=== PATIENT | female | born 1970 | race Caucasian/White ===

== ENCOUNTER 2019-03-01 22:35 | Observation (INO) ==
[2019-03-01] MEDS ORDERED: SUCRALFATE 1 G/10 ML UDC PO ONE (22:49)
[2019-03-01] MEDS ORDERED: LIDOCAINE HCL 20 ML UDC PO ONE (22:49)
[2019-03-01] MEDS ORDERED: MAG HYDROX/ALUMINUM HYD/SIMETH 30 ML UDC PO ONE (22:49)
[2019-03-01 22:54] LABS: Hematocrit 43.2 % (37.0-47.0); Hemoglobin 14.5 gm/dL (12.5-16.0); Mean Cell Volume 93.1 fl (78-100); Mean Corpuscular Hemoglobin 31.3 pg (27-31); Mean Corpuscular Hgb Conc 33.6 g/dl (32-36); Mean Platelet Volume 10.7 fl (8-12.5); Neutrophil # 6.7 K/mm3 (1.3-6.0); Neutrophil % 63.7 % (42-75.0); Platelet Count 226 K/mm3 (150-450); Red Blood Count 4.64 M/mm3 (4.2-5.4); Red Cell Distribution Width 12.8 % (11.5-14.0); White Blood Count 10.5 K/mm3 (4.0-10.5)
[2019-03-01] MEDS ORDERED: MORPHINE SULFATE 2 MG/ML DISP.SYRIN IV ONE (22:58)
[2019-03-01] MEDS ORDERED: NITROGLYCERIN 1 INCH PACKET TD ONE (22:58)
[2019-03-01 23:18] LABS: ALT 32 U/L (19-67); AST 22 U/L (0-48); Albumin * 4.1 gm/dl (3.4-5.0); Alkaline Phosphatase * 132 U/L (50-170); Anion Gap 16.7 mmol/L (6.8-13.8); BNP * 97 pg/mL (5-150); Bilirubin, Total 0.6 mg/dL (0.0-1.1); Blood Urea Nitrogen 16 mg/dL (3-23); Ca. Corrected For Albumin 8.8 mg/dL (8.4-10.2); Calcium * 9.2 mg/dL (7.9-10.9); Carbon Dioxide 24.4 mmol/L (24-32.6); Chloride 106 mmol/L (97-106); Glucose * 93 mg/dL (70-110); Potassium 4.1 mmol/L (3.4-4.6); Sodium 143 mmol/L (132-142); Total Protein 7.2 gm/dL (6.2-8.2); Troponin I Less than 0.017 ng/mL (0.00-0.10)
--- NOTE | 2019-03-01 23:38 | ERNOTE ---
Chest Pain/Cardiac HPI Date of Service: 03/01/19 Chief Complaint: Chest Pain Time Seen by Provider: 03/01/19 22:45 Source: patient Immunizations: IMMUNIZATION HX Immunizations Up to Date Yes History of Influenza Vaccine Yes Hx Pneumococcal Vaccination No Allergies/Adverse Reactions: Allergies No Known Allergies Allergy (Verified 03/01/19 22:42) Home Medications: HOME MEDICATIONS Aspirin [Aspirin EC] 325 mg PO DAILY 01/10/19 [Last Taken 03/01/19 06:30] Atorvastatin Calcium [Lipitor] 40 mg PO DAILY 01/10/19 [Last Taken Unknown] Clopidogrel Bisulfate [Plavix] 75 mg PO DAILY 01/10/19 [Last Taken Unknown] Lisinopril 5 mg PO DAILY 01/10/19 [Last Taken Unknown] Metoprolol Tartrate [Lopressor] 25 mg PO BID 01/10/19 [Last Taken Unknown] Nitroglycerin 0.4 mg SUBLINGUAL Q5M PRN 01/10/19 [Last Taken Unknown] amLODIPine BESYLATE [Norvasc] 5 mg PO DAILY 01/10/19 [Last Taken Unknown] varenicline 0.5 mg tablet 0.5 mg PO DAILY #11 tab 03/01/19 [Last Taken Unknown] varenicline 1 mg tablet 1 mg PO BID 77 Days #154 tab 03/01/19 [Last Taken Unknown] Narrative: This is a 48-year-old female who comes to the emergency department complaining of right shoulder and left-sided chest pain. The patient reports she was doing laundry when she developed a burning sensation in the right shoulder area. At the same time she developed a tightness or squeezing sensation in her left precordial area. She did not have any nausea but she did get short of breath. She also became diaphoretic. The patient says that she suffered a silent heart attack about a month and a half ago. She had basic blood work done by her doctor and she reports that the troponin was elevated. They did a heart catheterization and told her that she had nothing which required a stent, but she had a 70% blockage, a 60% blockage, and a 30% blockage. Patient does have high blood pressure and is being treated for high cholesterol. She is also a smoker. She reports she is cut down significantly. The patient took a nitroglycerin says that the chest pain eased just a tiny bit. Did not do anything for the shoulder discomfort. Again the patient had no symptoms with the previous heart problem. The patient reports that her symptoms are waxing and waning but not going away completely. She reports a 3 or 4 out of 10 pain at the moment. No nausea or vomiting. Did have a little bit of dizziness. She is short of breath but no coughing. Review of Systems - Review of Systems Constitutional: Present: no symptoms reported EYE: Present: no symptoms reported ENT: Present: no symptoms reported Respiratory: Present: See HPI, shortness of breath Cardiology: Present: See HPI, chest pain Gastrointestinal/Abdominal: Absent: nausea, vomiting, abdominal pain Genitourinary: Present: no symptoms reported Musculoskeletal: Present: joint pain, other - Right shoulder discomfort burning Skin: Present: no symptoms reported Neurological: Present: other - A little bit of dizziness Endocrine: Present: no symptoms reported Hematologic/Lymphatic: Present: no symptoms reported Psych: Present: no symptoms reported All Other Systems: All systems neg except as marked Medical History (Updated 03/02/19 @ 00:26 by Walter Yoo MD) Left shoulder strain (Acute) Onset Date: Unknown Dehydration (Acute) Onset Date: Unknown Hypokalemia (Acute) Onset Date: Unknown Lymphadenitis (Acute) Onset Date: Unknown Costochondritis (Acute) Onset Date: Unknown Pneumonia (Acute) Onset Date: Unknown Hx of myocardial infarction Back pain Onset Date: 2012 Constipation Onset Date: 2011 Hand pain, right Onset Date: Unknown Irregular menses Onset Date: 2016 Nipple lesion Onset Date: 2016 Personal history of cervical dysplasia Onset Date: 2011 Seizures Onset Date: Unknown as a child Surgical History: Surgical History (Updated 07/26/18 @ 15:08 by Cate Gregory RN) Encounter for tubal ligation Onset Date: 1998 History of colonoscopy Onset Date: 2013 [place]-normal. recheck 5-10 yrs. History of left breast biopsy Onset Date: 2011 ultrasound guided bx-fibroadenoma History of tonsillectomy Onset Date: Unknown as a child wisdom teeth Onset Date: Unknown Family History: Family History (Updated 07/26/18 @ 15:19 by Cate Gregory RN) Brother Alive and well Sister Cervix cancer Sister Alive and well Father , age 76 Myocardial infarction CHF (congestive heart failure) COPD (chronic obstructive pulmonary disease) Hypertension Mother , age 64 COPD (chronic obstructive pulmonary disease) Hypertension Brother Lung cancer bone Grandmother Myocardial infarction Grandmother Myocardial infarction Grandfather Myocardial infarction Social History: Preferred Language Lao Smoking Status Current every day smoker Abuse History No History of abuse Psych History No pertinent hx Alcohol Use none Drug Use none (Last Updated 01/26/19 @ 13:57 by Ivana Harrell MD) No Social History Section defined Physical Exam - Physical Exam General Appearance: Present: wd/wn, alert, no apparent distress Head Exam: Present: normal inspection, no evidence of injury Eye Exam: Normal inspection: bilateral, PERRL: bilateral, EOMI: bilateral Ears, Nose, Throat: Present: normal ENT inspection, normal pharynx Neck: Present: normal inspection, nontender Respiratory: Present: no respiratory distress, normal breath sounds, lungs clear Cardiovascular/Chest: Present: regular rate, rhythm, no murmur Gastrointestinal/Abdominal: Present: nontender, nondistended, soft Back Exam: Present: normal inspection Extremity Exam: Present: normal inspection, non-tender, normal range of motion, no edema Neurological Exam: Present: alert, oriented, normal mood/affect, no motor/sensory deficits Skin Exam: Present: normal color, warm/dry Lymphatic Exam: Present: no adenopathy Progress - Results and Orders Patient's Lab Results:: I have reviewed the patient's lab results. - Vital Signs Patient's Vital Signs:: I have reviewed the patient's vital signs. Vital Signs: Vital Signs 03/01/19 22:39 Temperature 36.1 C Pulse Rate 87 Respiratory Rate 19 Blood Pressure 139/86 O2 Sat by Pulse Oximetry 99 - EKG EKG #1 EKG read: Interp. by me EKG Comments: EKG demonstrates sinus rhythm with a ventricular rate of 70. Normal axis. Normal intervals. No ST elevation. T waves are inverted in 3. T waves are flattened laterally. Low voltages throughout. T wave inversion in 3 may be a normal variant. - X-Ray X-Ray #1 X-Ray: chest Interpretation: Interp. by me X-ray Comments: No acute cardiopulmonary disease - Progress/Reassessment Chief Complaint: Chest Pain Plan - Plan Plan: 48-year-old female with a history of coronary disease had a cath within the last couple of months coming in with chest pain while doing laundry. Pain started 90 minutes prior to arrival. Was associated with shortness of breath and diaphoresis. Enzymes on the first set and EKG are unremarkable. Going to admit to the hospital for rule out. Discussed with the hospital doctor who is in agreement. Departure Clinical Impression: Chest pain Qualifiers: Chest pain type: precordial pain Qualified Code(s): R07.2 - Precordial pain - Departure Disposition: Still a patient Condition: Good
[2019-03-02 00:26] LABS: Urine Bilirubin Negative (NEGATIVE); Urine Blood 25 /ul (NEGATIVE); Urine Ketone Negative (NEGATIVE); Urine Nitrite Negative (NEGATIVE); Urine Protein Negative (NEGATIVE); Urine Urobilinogen Normal (NORMAL); Urine pH 6.5 pH (5.0-7.0)
[2019-03-02 00:34] LABS: Urine Appearance Clear (CLEAR); Urine Bacteria None Seen; Urine Color Yellow; Urine RBC 0-5 /hpf (0-5); Urine WBC None Seen /hpf (0-5)
--- NOTE | 2019-03-02 10:29 | HP ---
Chief Complaint - Chief Complaint Date of Service: 03/02/19 Time of Service: 10:29 Chief Complaint: chest pain History of Present Illness: 48 yo CF presented to the ER for chest pain that began afternoon of admission. She states that she has a history of heart attack, recent catheterization showed her to have blockages in multiple vessels which is being managed conservatively. Patient states that she was doing laundry when she developed chest pain that was burning in nature. She took nitro which minimally improved the pain. She came to the ER when it did not resolve. Initial troponin was negative, repeat troponin was negative. EKG was negative for ST elevation changes. There was an inverted T wave in lead III and low voltage throughout, otherwise normal EKG. Her vital signs been stable with normal O2 sats. This morning when I saw her her pain is resolved and she is feeling great. She had no questions or concerns, she had a negative cardiac work-up overnight. Medical History (Updated 03/02/19 @ 10:29 by Sunny Bland DO) Left shoulder strain (Acute) Onset Date: Unknown Dehydration (Acute) Onset Date: Unknown Hypokalemia (Acute) Onset Date: Unknown Lymphadenitis (Acute) Onset Date: Unknown Costochondritis (Acute) Onset Date: Unknown Pneumonia (Acute) Onset Date: Unknown Hx of myocardial infarction Back pain Onset Date: 2012 Constipation Onset Date: 2011 Hand pain, right Onset Date: Unknown Irregular menses Onset Date: 2015 Nipple lesion Onset Date: 2016 Personal history of cervical dysplasia Onset Date: 2011 Seizures Onset Date: Unknown as a child Surgical History: Surgical History (Updated 03/02/19 @ 10:29 by Sunny Bland DO) Encounter for tubal ligation Onset Date: 1998 History of colonoscopy Onset Date: 2013 [place]-normal. recheck 5-10 yrs. History of left breast biopsy Onset Date: 2011 ultrasound guided bx-fibroadenoma History of tonsillectomy Onset Date: Unknown as a child wisdom teeth Onset Date: Unknown Family History: Family History (Updated 07/26/18 @ 15:19 by Cate Gregory RN) Brother Alive and well Sister Cervix cancer Sister Alive and well Father , age 76 Myocardial infarction CHF (congestive heart failure) COPD (chronic obstructive pulmonary disease) Hypertension Mother , age 64 COPD (chronic obstructive pulmonary disease) Hypertension Brother Lung cancer bone Grandmother Myocardial infarction Grandmother Myocardial infarction Grandfather Myocardial infarction Social History: Patient Lives/Resources 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 Smoking Status Current every day smoker Have you smoked in the past 12 Yes months Do you dip or chew tobacco No Abuse History No History of abuse Psych History No pertinent hx Alcohol Use none Drug Use none (Last Updated 01/26/19 @ 13:57 by Ivana Harrell MD) No Social History Section defined Review Of Systems (GEN) - Review of Systems Generalized/Overall Review: Absent: Weakness, Chills, Fever EENTM: Present: No Symptoms Reported Respiratory: Absent: Cough, Shortness of Breath, Wheezing Cardiac: Present: Chest Pain. Absent: Edema, Palpitations Abdominal: Present: No Symptoms Reported Genitourinary: Present: No Symptoms Reported Musculoskeletal: Present: Joint Pain - Right shoulder. Absent: Back Pain, Joint Swelling Neurological: Present: No Symptoms Reported Skin: Present: No Symptoms Reported Endocrine: Present: No Symptoms Reported Immunizations: IMMUNIZATION HX Immunizations Up to Date Yes History of Influenza Vaccine Yes Hx Pneumococcal Vaccination No Allergies/Adverse Reactions: Allergies Allergy/AdvReac Type Severity Reaction Status Date / Time No Known Allergies Allergy Verified 03/01/19 22:42 Home Medications: HOME MEDICATIONS Aspirin [Aspirin EC] 325 mg PO DAILY 01/10/19 [Last Taken 03/01/19 06:30] Atorvastatin Calcium [Lipitor] 40 mg PO DAILY 01/10/19 [Last Taken Unknown] Clopidogrel Bisulfate [Plavix] 75 mg PO DAILY 01/10/19 [Last Taken Unknown] Lisinopril 5 mg PO DAILY 01/10/19 [Last Taken Unknown] Metoprolol Tartrate [Lopressor] 25 mg PO BID 01/10/19 [Last Taken Unknown] Nitroglycerin 0.4 mg SUBLINGUAL Q5M PRN 01/10/19 [Last Taken Unknown] amLODIPine BESYLATE [Norvasc] 5 mg PO DAILY 01/10/19 [Last Taken Unknown] varenicline 0.5 mg tablet 0.5 mg PO DAILY #11 tab 03/01/19 [Last Taken Unknown] varenicline 1 mg tablet 1 mg PO BID 77 Days #154 tab 03/01/19 [Last Taken Unknown] Tiotropium [place] [Spiriva] 18 mcg INHALATION BID 03/02/19 [Last Taken Unknown] Exam - Exam Vital Signs: Vital Signs - Last Taken Temp 36.6 C 03/02/19 06:52 Pulse 54 L 03/02/19 06:52 Resp 16 03/02/19 06:52 BP 106/68 03/02/19 06:52 Pulse Ox 97 03/02/19 06:52 Constitutional: Present: Alert, Oriented x3 ENT Exam: Present: hearing grossly normal. Absent: nasal drainage Eye Exam: bilateral eye: normal inspection Neck: Present: non-tender, full range of motion, supple Respiratory: Present: lungs clear, normal breath sounds, no respiratory distress Cardiovascular/Chest: Present: normal peripheral pulses, regular rate, rhythm, no murmur Skin Exam: Present: normal color, warm/dry Appearance: Present: appropriate appearance, appropriate insight Eye contact: Present: cooperative, good eye contact Thoughts: Present: normal thought pattern, normal mood /affect Diagnostic Studies: Abnormal Lab Results 03/01/19 03/01/19 03/02/19 Range/Units 22:45 22:45 00:00 MCH 31.3 H (27-31) pg Neutrophils # 6.7 H (1.3-6.0) K/mm3 Sodium 143 H (132-142) mmol/L Plasma Sodium 143 H (130-142) mmol/L Anion Gap 16.7 H (6.8-13.8) mmol/L Est GFR (Non-Af Amer) 50 L (60-130) mL/min Urine Blood 25 H (NEGATIVE) /ul Laboratory Results WBC 10.5 K/mm3 (4.0-10.5) 03/01/19 22:45 RBC 4.64 M/mm3 (4.2-5.4) 03/01/19 22:45 Hgb 14.5 gm/dL (12.5-16.0) 03/01/19 22:45 Hct 43.2 % (37.0-47.0) 03/01/19 22:45 MCV 93.1 fl (78-100) 03/01/19 22:45 MCH 31.3 pg (27-31) H 03/01/19 22:45 MCHC 33.6 g/dl (32-36) 03/01/19 22:45 RDW 12.8 % (11.5-14.0) 03/01/19 22:45 Plt Count 226 K/mm3 (150-450) 03/01/19 22:45 MPV 10.7 fl (8-12.5) 03/01/19 22:45 Immature Gran % (Auto) 0.20 % (0.001-0.429) 03/01/19 22:45 Immature Gran # (Auto) 0.02 K/mm3 (0.000-0.0310) 03/01/19 22:45 63.7 % (42-75.0) 03/01/19 22:45 27.7 % (20-51) 03/01/19 22:45 5.6 % (0.0-9) 03/01/19 22:45 2.4 % (0.0-3.0) 03/01/19 22:45 0.4 % (0.0-1.0) 03/01/19 22:45 Nucleated RBC % 0.0 k/mm3 (0-1) 03/01/19 22:45 6.7 K/mm3 (1.3-6.0) H 03/01/19 22:45 2.91 k/mm3 (1.5-3.5) 03/01/19 22:45 0.6 k/mm3 (0.0-1.0) 03/01/19 22:45 0.3 k/mm3 (0.0-0.7) 03/01/19 22:45 Absolute Basophils 0.0 k/mm3 (0.0-0.1) 03/01/19 22:45 Sodium 143 mmol/L (132-142) H 03/01/19 22:45 143 mmol/L (130-142) H 03/01/19 22:45 Potassium 4.1 mmol/L (3.4-4.6) 03/01/19 22:45 Chloride 106 mmol/L (97-106) 03/01/19 22:45 Carbon Dioxide 24.4 mmol/L (24-32.6) 03/01/19 22:45 16.7 mmol/L (6.8-13.8) H 03/01/19 22:45 BUN 16 mg/dL (3-23) 03/01/19 22:45 1.23 mg/dL (0.4-1.4) 03/01/19 22:45 Est GFR (Non-Af Amer) 50 mL/min (60-130) L 03/01/19 22:45 13.0 (9.0-21.6) 03/01/19 22:45 93 mg/dL (70-110) 03/01/19 22:45 Calcium 9.2 mg/dL (7.9-10.9) 03/01/19 22:45 Calcium Adj for Albumin 8.8 mg/dL (8.4-10.2) 03/01/19 22:45 0.6 mg/dL (0.0-1.1) 03/01/19 22:45 AST 22 U/L (0-48) 03/01/19 22:45 ALT 32 U/L (19-67) 03/01/19 22:45 132 U/L (50-170) 03/01/19 22:45 Less than 0.017 ng/mL (0.00-0.10) 03/02/19 04:30 B-Natriuretic Peptide 97 pg/mL (5-150) 03/01/19 22:45 7.2 gm/dL (6.2-8.2) 03/01/19 22:45 4.1 gm/dl (3.4-5.0) 03/01/19 22:45 Yellow 03/02/19 00:00 Clear (CLEAR) 03/02/19 00:00 6.5 pH (5.0-7.0) 03/02/19 00:00 Ur Specific [place] 1.010 SP.GR. (1.005-1.010) 03/02/19 00:00 Negative mg/dL (NEGATIVE) 03/02/19 00:00 Negative mg/dL (NEGATIVE) 03/02/19 00:00 Negative mg/dL (NEGATIVE) 03/02/19 00:00 25 /ul (NEGATIVE) H 03/02/19 00:00 Negative (NEGATIVE) 03/02/19 00:00 Negative mg/dl (NEGATIVE) 03/02/19 00:00 Normal EU/dl (NORMAL) 03/02/19 00:00 Ur Leukocyte Esterase Negative /ul (NEGATIVE) 03/02/19 00:00 0-5 /hpf (0-5) 03/02/19 00:00 None seen /hpf (0-5) 03/02/19 00:00 Ur Epithelial Cells 0-5 /hpf (0-5) 03/02/19 00:00 None seen (NONE) 03/02/19 00:00 No culture indicated 03/02/19 00:00 Assessment/Plan - Narrative Narrative: 48-year-old female placed in observation for chest pain requiring cardiac rule out. Cardiac enzymes negative x2, no EKG changes. Vital signs including blood pressure, pulse, O2 sats all within normal limits. When examined this morning patient had no symptoms and stated that she was feeling well. She was ready to go home. Vital signs stable. No DVT prophylaxis as patient was only here for short stay. Heart healthy diet has been ordered. Patient working on smoking cessation, encouraged her to continue to stop. She is asking to be discharged as she feels well, likely home later today. - Assessment/Plan (1) Chest pain Problem: Acute Qualifiers: Chest pain type: precordial pain Qualified Code(s): R07.2 - Precordial pain (2) CAD (coronary artery disease) Problem: Chronic Qualifiers: Coronary Disease-Associated Artery/Lesion type: [place] artery [place] vs. transplanted heart: [place] heart Associated angina: with stable angina Qualified Code(s): I25.118 - Atherosclerotic heart disease of [place] coronary artery with other forms of angina pectoris (3) Cigarette nicotine dependence Problem: Chronic Qualifiers: Substance use status: unspecified nicotine-induced disorder Qualified Code(s): F17.219 - Nicotine dependence, cigarettes, with unspecified nicotine- induced disorders (4) Hypertension Problem: Chronic Qualifiers: Hypertension type: essential hypertension Qualified Code(s): I10 - Essential (primary) hypertension
--- NOTE | 2019-03-02 12:33 | DS ---
(1) Chest pain Problem: Acute Qualifiers: Chest pain type: precordial pain Qualified Code(s): R07.2 - Precordial pain (2) CAD (coronary artery disease) Problem: Chronic Qualifiers: Coronary Disease-Associated Artery/Lesion type: [place] artery [place] vs. transplanted heart: [place] heart Associated angina: with stable angina Qualified Code(s): I25.118 - Atherosclerotic heart disease of [place] coronary artery with other forms of angina pectoris (3) Cigarette nicotine dependence Problem: Chronic Qualifiers: Substance use status: unspecified nicotine-induced disorder Qualified Code(s): F17.219 - Nicotine dependence, cigarettes, with unspecified nicotine- induced disorders (4) Hypertension Problem: Chronic Qualifiers: Hypertension type: essential hypertension Qualified Code(s): I10 - Essential (primary) hypertension Description of Stay: 48-year-old female with history of coronary artery disease and recent catheterization brought in for observation overnight due to chest pain that began the afternoon before. While here she had a negative cardiac work-up including normal cardiac enzymes, no EKG changes, normal vital signs. When seen this morning patient was feeling much better and was ready to be discharged home. Her lab work was benign. She did state she had right shoulder pain with associated burning, this has resolved. Advised her to follow-up with her PCP in the next 1 to 2 weeks which she agrees to do. I advised her to cut her metoprolol in half and take 12.5 mg twice daily as her heart rate had been in the 40s and 50s when I saw her this morning. She can discuss this change with Dr. Dumont and also her solar installation helper when she follows up with them next. She was in agreement with treatment plan, she will follow-up with her doctor as directed. She knows to return to the ER if she develops chest pain in the future. Procedures Performed: none Results and Findings: Lab Pending Results 03/01/19 22:45: WBC 10.5, RBC 4.64, Hgb 14.5, Hct 43.2, MCV 93.1, MCH 31.3 H, MCHC 33.6, RDW 12.8, Plt Count 226, MPV 10.7, Immature Gran % (Auto) 0.20, Immature Gran # (Auto) 0.02, Neutrophils % 63.7, Lymphocytes % 27.7, Monocytes % 5.6, Eosinophils % 2.4, Basophils % 0.4, Nucleated RBC % 0.0, Neutrophils # 6.7 H, Lymphocytes # 2.91, Monocytes # 0.6, Eosinophils # 0.3, Absolute Basophils 0.0 03/01/19 22:45: Sodium 143 H, Plasma Sodium 143 H, Potassium 4.1, Chloride 106, Carbon Dioxide 24.4, Anion Gap 16.7 H, BUN 16, Creatinine 1.23, Est GFR (Non-Af Amer) 50 L, BUN/Creatinine Ratio 13.0, Random Glucose 93, Calcium 9.2, Calcium Adj for Albumin 8.8, Total Bilirubin 0.6, AST 22, ALT 32, Alkaline Phosphatase 132, Troponin I Less than 0.017, B-Natriuretic Peptide 97, Total Protein 7.2, Albumin 4.1 03/02/19 00:00: Urine Color Yellow, Urine Appearance Clear, Urine pH 6.5, Ur Specific [place] 1.010, Urine Protein Negative, Urine Glucose (UA) Negative, Urine Ketones Negative, Urine Blood 25 H, Urine Nitrate Negative, Urine Bilirubin Negative, Urine Urobilinogen Normal, Ur Leukocyte Esterase Negative, Urine RBC 0-5, Urine WBC None seen, Ur Epithelial Cells 0-5, Urine Bacteria None seen, Urine Culture Comments No culture indicated 03/02/19 04:30: Troponin I Less than 0.017 Discharge Location: Home Disposition: Home self-care Condition: Good Discharge Activity: Activity as tolerated Discharge Diet: Consistent carbs Referrals: Ivana Harrell MD [Primary Care Provider] - One Week Prescriptions (Any new or edited meds): Metoprolol Tartrate [Lopressor] 12.5 mg PO BID #60 tab Complete Home Medications List: Complete Home Medication List: Aspirin [Aspirin EC] 325 mg PO DAILY 01/10/19 Atorvastatin Calcium [Lipitor] 40 mg PO DAILY 01/10/19 Clopidogrel Bisulfate [Plavix] 75 mg PO DAILY 01/10/19 Lisinopril 5 mg PO DAILY 01/10/19 Nitroglycerin 0.4 mg SUBLINGUAL Q5M PRN 01/10/19 amLODIPine BESYLATE [Norvasc] 5 mg PO DAILY 01/10/19 varenicline 0.5 mg tablet 0.5 mg PO DAILY #11 tab 03/01/19 varenicline 1 mg tablet 1 mg PO BID 77 Days #154 tab 03/01/19 Metoprolol Tartrate [Lopressor] 12.5 mg PO BID #60 tab 03/02/19 Tiotropium [place] [Spiriva] 18 mcg INHALATION BID 03/02/19
[2019-03-02 16:24] VITALS: BP 94/52
[2019-03-02] MEDS ORDERED: METOPROLOL TARTRATE 25 MG TABLET PO SCH (21:00)
[2019-03-02] MEDS ORDERED: VARENICLINE TARTRATE 1 MG PO SCH (21:00)
[2019-03-02] MEDS ORDERED: TIOTROPIUM BROMIDE 5 CAP INHALER IH SCH (21:00)
[2019-03-03] MEDS ORDERED: ASPIRIN 325 MG TABLET.DR PO SCH (09:00)
[2019-03-03] MEDS ORDERED: VARENICLINE 0.5 MG PO SCH (09:00)
[2019-03-03] MEDS ORDERED: amLODIPine BESYLATE 5 MG TABLET PO SCH (09:00)
[2019-03-03] MEDS ORDERED: ROSUVASTATIN CALCIUM 20 MG TABLET PO SCH (09:00)
[2019-03-03] MEDS ORDERED: CLOPIDOGREL BISULFATE 75 MG TABLET PO SCH (09:00)
[2019-03-03] MEDS ORDERED: LISINOPRIL 5 MG TABLET PO SCH (09:00)
== END 2019-03-02 13:50 | disposition home or self-care (01) ==
LOC: MS 22:35 → ER 22:35 → MS 03-02 01:00
PROVIDERS: ADMIT Family Medicine; ATTEND Internal Medicine
CPT/HCPCS: 36415; 71010; 71045; 80053; 81001; 83519; 83880; 84484; 85025; 93005; 96374; 99285; G0378